=== PATIENT | male | born 2000 | race Caucasian/White ===

== ENCOUNTER 2021-12-13 07:39 | Emergency (ER) | payer OTHER ==
[2021-12-13 08:42] LABS: #Eosinphils 0.3 thou/uL (0.0-0.7); #Monocytes 0.7 thou/uL (0.11-0.59); #Neutrophils 3.4 thou/uL (1.40-6.50); %Basophils 0.7 % (0.0-1.0); %Eosinophils 4.2 % (0.0-10.0); %Lymphocytes 30.9 % (21.0-51.0); %Monocytes 10.3 % (0.0-10.0); %Neutrophils 53.9 % (42.0-75.0); Mean Corpuscular HGB CONC 32.8 g/dL (32.0-36.0); Mean Corpuscular Hemoglobin 29.1 pg (27.0-31.0); Mean Corpuscular Volume 88.6 fL (78.0-98.0); Mean Platelet Volume 7.2 fL (7.4-10.4); Platelet Count 235 thou/uL (130-400); RBC Distribution Width 12.9 % (11.5-14.5); Red Blood Cell (RBC) Count 5.17 mill/uL (4.70-6.10); White Blood Cell (WBC) Count 6.3 thou/uL (4.8-10.8)
[2021-12-13] MEDS ORDERED: Ondansetron PF 4 MG/2 ML Vial ONE (08:54)
[2021-12-13] MEDS ORDERED: Pantoprazole 40 MG VIAL ONE (08:54)
[2021-12-13] MEDS ORDERED: Morphine 4 MG/ML VIAL ONE (08:54)
[2021-12-13 09:01] LABS: ALT (SGPT) 25 U/L (8-55); AST (SGOT) 17 U/L (5-34); Albumin 4.4 g/dL (3.5-5.0); Alkaline Phosphatase 141 U/L (40-110); Anion Gap 11 mmol/L (10-20); BUN (Urea Nitrogen) 14 mg/dL (8.9-20.6); CK (CPK) 99 U/L (30-200); Calc. Creatinine Clearance 0 mL/min (70-130); Calcium 9.1 mg/dL (7.8-10.44); Carbon Dioxide 28 mmol/L (22-29); Chloride 104 mmol/L (98-107); Estimated GFR 126; Glucose 105 mg/dL (70-105); Lipase 21 U/L (8-78); Potassium 4.1 mmol/L (3.5-5.1); Protein, Total 7.4 g/dL (6.0-8.3); Sodium 139 mmol/L (136-145)
== END 2021-12-13 09:36 | disposition home or self-care (01) ==
LOC: ERS 07:39
DX: K21.9 Gastro-esophageal reflux disease without esophagitis (principal)
CPT/HCPCS: 36415; 76705; 80053; 82550; 83690; 84484; 85025; 93005; 96374; 96375; C9113; J2270; J2405